=== PATIENT | female | born 1955 | race Caucasian/White ===

== ENCOUNTER 2018-06-15 05:26 | Day surgery (SDC) | payer OTHER ==
[~2018-06-15] VITALS: Ht 165.1 cm; Wt 77.6 kg
[~2018-06-15 05:26] MED LIST: APTENSIO XR15 MG PO; CELEXA20 MG PO; CYMBALTA60 MG PO; FIBER0.4 GM PO; FISH OIL 1,001000 M2 PO; FLEXERIL PO; GLUCOSAMINE &1 EACH PO; LORATIDINE 10 M10 M1 PO; MUCINEX600 MG PO; NEURONTIN 300300 M1 PO; OMEPRAZOLE 20 M20 M1 PO; TRAZODONE HCL50 MG PO
[2018-06-15 08:25] LABS: HEMATOCRIT 38.4 % (37.0-47.0); HEMOGLOBIN 13.4 gm/dL (12.0-15.0)
[2018-06-15 08:48] VITALS: BP 105/67
[2018-06-15] MEDS ORDERED: NORCO 5-325 TA1 EACH PO (10:21)
[2018-06-15] MEDS ORDERED: SENOKOT-S TABL1 EACH PO (10:21)
[2018-06-15 10:27] VITALS: BP 105/67
--- NOTE | 2018-06-20 15:06 | PATH ---
[facility] [address] [place] [address] PATHOLOGY RPT PROCEDURE Name: LUCIE FIELD Yohana Room #: [place] [facility] [place] [id number] Admission: 06/15/18 Date of : 53 Discharge: 06/15/18 Report #: [id number] Path Case #: [id number] [facility] Accession Number: [id number] . 01 Material submitted: . APPENDIX . 01 Clinical history: . Acute appendicitis . 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 - Negative for high grade dysplasia or invasive malignancy. - Intact appendiceal wall. - Proximal margin free of low grade dysplasia. LBQ/06/20/2018 . 02 Comment: Examination of the entire appendix shows a low grade appendiceal mucinous neoplasm with stratified nuclei, serration of the epithelium as well as hyperplastic changes. The distal tip was dilated and filled with clear viscous material (mucin) grossly. The tip of the appendix is intact without any perforation. Focal acute inflammation is present. Clinical history of acute appendicitis is noted, and low grade appendiceal mucinous neoplasm can be associated with acute appendicitis-like symptoms. The proximal margin is free of dysplasia. There is no high grade dysplasia or invasive malignancy present. (IUV/db; 06/20/18) . 02 Electronically signed: . Myra Escamilla MD, Pathologist NPI- [id number] . 01 Gross description: . The specimen is received in formalin, labeled "Lucie Field, appendix", is an appendix measuring 6.4 cm in length and up to 0.7 cm in diameter and abundantly attached yellow lobulated meso appendix measuring 6.4 x 2.4 x 1.0 cm. The proximal resection margin is closed by a linear staple line measuring 1.4 cm in length with an average 0.2 cm width. The staple line is removed and the adjacent serosa inked black. the serosa is ely-white, smooth with no discrete perforation. The proximal to mid lumen is dilated and filled with soft fecal material and no discrete fecalith. The distal tip is dilated and filled with clear viscous material. The wall has an average 0.1 cm thickness. No discrete masses are identified. [employer] tissue is submitted in A1. ([facility]; 06/15/2018) [address] [address] PATHOLOGY RPT PROCEDURE Name: LUCIE FIELD Room #: [place] [facility] [place]ey#: [id number] Admission: 06/15/18 Date of : 53 Discharge: 06/15/18 Report #: [id number] Path Case #: [id number] After initial microscopic review, the specimen is entirely submitted in A2-A6. ([facility]; 06/18/2018) SHS/SHS . 02 Pathologist provided ICD-10: D12.1, K35.80 . 02 CPT . 262128 Specimen Comment: A courtesy copy of this report has been sent to Specimen Comment: [phone], . Specimen Comment: Report sent to / DR MCKINNEY Performed at: [address] [facility], [place] [id number] MD Bhanu Hdez MD Phone: [phone] Performed at: [address] [facility] [id number] MD yMra Escamilla MD Phone: [phone]
== END 2018-06-15 11:15 | disposition home or self-care (01) ==
LOC: OR 05:26 → TBA 05:27 → OR 11:15
PROVIDERS: Surgery
DX: K36 Other appendicitis (principal); F41.9 Anxiety disorder, unspecified; F32.9 Major depressive disorder, single episode, unspecified; K21.9 Gastro-esophageal reflux disease without esophagitis; Z87.891 Personal history of nicotine dependence; Z90.710 Acquired absence of both cervix and uterus; Z79.899 Other long term (current) drug therapy; Z98.890 Other specified postprocedural states
CPT/HCPCS: 50010; 50101; 50249; 50411; 50555; 50558; 50739; 50740; 50962; 51975; 52265; 53307; 54022; 54118; 55245; 56525; 56526; 62110; 62900; 70005